=== PATIENT | female | born 1985 | race Caucasian/White ===

== ENCOUNTER 2017-12-03 11:41 | Inpatient (IN) | payer BC ==
[2017-12-03] MEDS ORDERED: Ondansetron HCl/PF 4 MG/2 ML Vial ONE ×2 (12:29→15:11)
[2017-12-03] MEDS ORDERED: ISOVUE-370 76%-LOCM 1 ML ONE (12:30)
[2017-12-03 12:31] LABS: #Eosinphils 0.4 thou/uL (0.0-0.7); #Monocytes 0.5 thou/uL (0.11-0.59); #Neutrophils 7.9 thou/uL (1.40-6.50); %Basophils 0.3 % (0.0-1.0); %Eosinophils 3.6 % (0.0-10.0); %Lymphocytes 10.1 % (21.0-51.0); %Monocytes 4.6 % (0.0-10.0); %Neutrophils 81.4 % (42.0-75.0); Mean Corpuscular HGB CONC 31.9 g/dL (32.0-36.0); Mean Corpuscular Hemoglobin 27.6 pg (27.0-31.0); Mean Corpuscular Volume 86.4 fl (81.0-99.0); Mean Platelet Volume 6.7 fL (7.4-10.4); Platelet Count 334 thou/uL (130-400); RBC Distribution Width 12.7 % (11.5-14.5); Red Blood Cell (RBC) Count 3.98 mill/uL (4.20-5.40); White Blood Cell (WBC) Count 9.8 thou/uL (4.8-10.8)
[2017-12-03] MEDS ORDERED: Iopamidol 370 76% 50 ML VIAL FS ONE (12:31)
[2017-12-03 12:35] LABS: ALT (SGPT) 8 U/L (8-55); AST (SGOT) 11 U/L (5-34); Alkaline Phosphatase 74 U/L (40-150); Anion Gap 13 mmol/L (10-20); BUN (Urea Nitrogen) 12 mg/dL (7.0-18.7); Calc. Creatinine Clearance 0 mL/min (70-130); Calcium 9.4 mg/dL (7.8-10.44); Carbon Dioxide 24 mmol/L (22-29); Chloride 106 mmol/L (98-107); Estimated GFR-MDRD Greater than 90; Globulin 3.4 g/dL (2.4-3.5); Glucose 85 mg/dL (70-105); Potassium 3.9 mmol/L (3.5-5.1); Protein, Total 7.4 g/dL (6.0-8.3); Sodium 139 mmol/L (136-145)
[2017-12-03 13:19] LABS: Bilirubin Small (Negative); Blood, Urine Negative (Negative); Clarity CLOUDY (Clear); Glucose, Urine (Dipstick) Negative (Negative); Leukocyte Negative (Negative); Nitrite Negative (Negative); Protein, Urine (Dipstick) 30 mg/dL (Neg-Trace); Specific Gravity, Urine 1.022 (1.002-1.036); pH, Urine 6.5 (5.0-9.0)
[2017-12-03 13:20] LABS: Pregnancy Test - Urine (BHCG) Negative (Negative); Pregu Control Background? CLEAR/WHITE (CLR/WHITE); Pregu Control Bar Appear? YES (CONTROL BAR); Specific Gravity 1.022 (1.002-1.036)
[2017-12-03 13:21] LABS: Bacteria/HPF 1+ HPF (None Seen); Hyaline Casts/LPF 7-10 HYALINE CAST LPF (0-3 Hyaline); Pathc Cast-AUWi Flag 0.67 (0-2.49); RBC/HPF 0-3 HPF (0-3)
[2017-12-03] MEDS ORDERED: Morphine 4 MG/ML Carpuject ONE (13:33)
[2017-12-03 13:42] LABS: Crystals/HPF None Seen HPF (Negative); Oval Fat Bodies/HPF None Seen HPF (None Seen); Renal Epithelial None Seen HPF (0-3); Transitional Epithelial NONE SEEN HPF (0-3); Trichomonas/HPF None Seen HPF (None Seen)
--- NOTE | 2017-12-03 14:28 | CT ---
CT OF ABDOMEN AND PELVIS: Date: 12/03/17 COMPARISON: None. HISTORY: Abdominal pain. TECHNIQUE: Serial axial CT imaging at 5 mm intervals from the lung bases through the pubic symphysis with IV con trast. Coronal reformatted imaging obtained. FINDINGS: The lack of oral contrast limits assessment of the bowel. Gastric suture line noted. Minimal ground-g lass opacity noted in right lower lobe, which may signify inflammatory change or atelectasis. Cholecy stectomy clips are present. No free intraperitoneal air is seen. There is a low density lesion in the right lobe of the liver on image 10 with Hounsfield units of ashley roximately 45-50. This is not consistent with a cyst. This lesion measures 2.8 cm. The spleen, pancreas, adrenal glands, and kidneys are unremarkable. There is abnormal density within the fat within the pelvis inseparable from the region of the cecal t ip, distal small bowel, right adnexa, sigmoid colon, and uterus. There is a calcification somewhat ce ntrally located with this extensive area of nonspecific inflammatory change within the pelvis on anny nal image 52 measuring 9.0 mm. This could be related to an appendicolith or trapped calcific material within a colonic diverticulum. There is ill-defined hypodensity in the region of the adnexa on the right, best seen on image 73, whi ch could represent cystic disease within the right ovary or a right ovarian/adnexal mass or abscess. Vascular structures appear patent. Multiple mildly prominent mesenteric nodes are seen in the right lower quadrant. No acute osseous abnormality is seen. IMPRESSION: 1. There is prominent inflammatory change centered in the lower right hemipelvis/right lower quadran t. Appendix cannot be discretely visualized. A calcification is seen centered within this inflammator y process, which may represent an appendicolith. Primary consideration would be for appendicitis with possible perforation. Alternative considerations include nonspecific ileitis, including Crohn's dise ase, or pelvic inflammatory disease. 2. Hypodense lesion within the liver, not consistent with a cyst. A hemangioma is favored. Follow-up MRI of abdomen with and without contrast and/or CT examination with and without contrast on a noneme rgent basis advised for further characterization. Surgical consultation and consideration for repeat CT examination with oral and rectal contrast media . Results called to Dr. Brewer at 1345 hours on 12/03/17. CODE CR. POS: ELENI
[2017-12-03] MEDS ORDERED: Promethazine HCl 25 MG/ML VIAL ONE (16:06)
[2017-12-03] MEDS ORDERED: Fentanyl 100 MCG/2 ML VIAL ONE (16:37)
--- NOTE | 2017-12-03 17:06 | CT ---
CT ABDOMEN AND PELVIS WITHOUT CONTRAST: History: Follow up after oral and rectal contrast. FINDINGS: The right lower quadrant cecum and terminal ileum are not enhanced with contrast. While this was thou ght to possibly be the dilated appendix on the prior examination, it ends up being terminal ileum. No appendix is seen on this examination. There is severe mucosal edema and thickening of the terminal i leum. There is also reactive edema and thickening of the sigmoid colon. There is a calcification in t he mesenteric soft tissues. There are numerous reactive ileocolic lymph nodes. IMPRESSION: The terminal ileum and cecum do not have contrast within their lumen. This most likely represent term inal ileitis and colitis. The abnormal calcification adjacent to the terminal ileum in extraluminal a nd abnormal. The appendix is not visualized. Ruptured appendix is still within the differential. POS: ELENI
[2017-12-03] MEDS ORDERED: Meropenem 1 GM in Sterile Water 20 ML SLOW IVP SCH (17:15)
[2017-12-03] MEDS ORDERED: Sodium Chloride 0.9% 1,000 ML IV SCH (18:49)
[2017-12-03] MEDS ORDERED: Ondansetron ODT 4 MG TAB SL PRN (18:49)
[2017-12-03] MEDS ORDERED: Ondansetron HCl/PF 4 MG/2 ML Vial IVP PRN (18:49)
[2017-12-03] MEDS ORDERED: Fentanyl 100 MCG/2 ML VIAL SLOW IVP PRN (18:49)
[2017-12-03] MEDS ORDERED: hydrALAZINE 20 MG/ML VIAL SLOW IVP PRN (19:32)
[2017-12-03] MEDS ORDERED: Nitroglycerin 0.4 MG TAB (25 Tab Bottle) SL PRN (19:32)
[2017-12-03] MEDS ORDERED: diphenhydrAMINE 25 MG CAP PO PRN (19:32)
[2017-12-03] MEDS ORDERED: Mag-Al 1200 mg/1200 mg/30 ML UDCUP PO PRN (19:32)
[2017-12-03] MEDS: Sodium Chloride 0.9% 1,000 ML IV SCH (20:30)
--- NOTE | 2017-12-03 20:44 | HP ---
DATE OF ADMISSION: 12/03/2017 PRIMARY CARE PHYSICIAN: Jonatan link. REASON FOR ADMISSION: Abdominal pain/colitis. HISTORY OF PRESENT ILLNESS: Ms. Scarlett Bailon is a 32-year-old female with no significant past med ical history, who presents with a reported history of colitis approximately 2 years ago, who presents to the emergency department with abdominal pain, which initially started a few weeks ago and has bee n intermittent since then. She states that, however, the pain has not been as severe as it was today . She states that in the past week, she has had intermittent pain which would dissipate without any kind of intervention. She denies any diarrhea; however, she states she has had nausea and vomiting. She complains of decreased appetite as well as decreased p.o. intake. She states the pain is locate d mainly in her right lower quadrant. The pain does not radiate. She denies any urinary symptoms. She states that 2 years ago, she had an episode of colitis, which was treated with antibiotics and a subsequent colonoscopy was performed which was reportedly negative. They presented back to the emerg ency room today after having a near syncopal episode from the pain. There was no seizure-like activi ty noted. She denies any numbness or tingling anywhere. A CT scan performed in the emergency room h ere has revealed the terminal ileum and cecum without any contrast in the lumen represented terminal ileitis and colitis. She is now being admitted to the medical floor for further evaluation, IV antib iotic therapy, as well as Gastroenterology evaluation. PAST MEDICAL HISTORY: History of colitis approximately 2 years ago. PAST SURGICAL HISTORY: , thyroidectomy, and a gastric sleeve surgery. CODE STATUS: FULL CODE. SOCIAL HISTORY: She denies any alcohol use, tobacco use or illicit drug use. CURRENT MEDICATIONS: Reviewed and none. ALLERGIES: Reviewed and none. FAMILY HISTORY: Reviewed and significant for grandfather with unspecified malignancy. REVIEW OF SYSTEMS: The following complete review of systems was negative, unless otherwise mentioned in the HPI or below: Constitutional: Weight loss or gain, sense of well-being, ability to conduct usual activities, exerc ise tolerance. Skin/Breast: Rash, itching, changes in hair growth or loss, nail changes, breast lumps, tenderness, swelling, nipple discharge. Eyes: Vision, double vision, tearing, blind spots, pain. ENT/Mouth: Headaches (location, time of onset, duration, precipitating factors), vertigo, lightheadedness, injury. Vision, double vision, tearing, blind spots, pain, nose b leeding, colds, obstruction, discharge, dental difficulties, gingival bleeding, dentures, neck stiffn ess, pain, tenderness, masses in thyroid or other areas Cardiovascular: Precordial pain, substernal distress, palpitations, syncope, dyspnea on exertion, or thopnea, nocturnal paroxysmal dyspnea, edema, cyanosis, hypertension, heart murmurs, varicosities, ph lebitis, claudication. Respiratory: Pain, shortness of breath, wheezing, stridor, cough, hemoptysis, fever or night sweats Gastrointestinal: Poor appetite, dysphagia, indigestion, abdominal pain, heartburn, eructation, naus ea, vomiting, hematemesis, jaundice, constipation, or diarrhea, abnormal stools (deni-colored, tarry, bloody, greasy, foul smelling), flatulence, hemorrhoids, recent changes in bowel habits. Genitourinary: Urgency, frequency, dysuria, nocturia, hematuria, polyuria, oliguria, unusual (or chikis nge in) color of urine, stones, hesitancy, change in size of stream, dribbling, acute retention or in continence, libido, potency. Musculoskeletal: Pain, swelling, redness or heat of muscles or joints, limitation, of motion, muscular weakness, atrophy, cramps. Neurologic/Psychiatric: Convulsions, paralyses, tremor, incoordination, parasthesias, difficulties w ith memory of speech, sensory or motor disturbances, or muscular coordination (ataxia, tremor), emoti onal problems, anxiety, depression, previous psychiatric care, unusual perceptions, hallucinations. Allergy/Immunologic: Skin rash, anemia, bleeding tendency, polydipsia, polyuria, intolerance to heat or cold. PHYSICAL EXAMINATION: VITAL SIGNS: Blood pressure most recently is 112/73, pulse 72, respirations are 16, O2 saturation is 100% on room air. GENERAL: She is in no acute distress, nontoxic appearing. EYES: Show pupils are round and reactive to light and accommodation. No pale conjunctivae. ENT/MOUTH: Dry oral mucosa. No oral lesions. RESPIRATORY: Equal chest wall expansion. No wheezes, rhonchi, or rales. CARDIOVASCULAR: S1, S2 present. No murmurs, gallops or rubs. GASTROINTESTINAL: Soft. She does have some tenderness in the right lower quadrant as well as in the periumbilical area. No rebound tenderness, no guarding, no peritoneal signs, no Rovsing's. LYMPHATIC: No swollen or painful cervical, axillary lymph nodes. NEUROLOGIC: No ptosis, no facial asymmetry, no tongue deviation or jaw protrusion, no focal deficits . PSYCHIATRIC: Awake, alert and oriented to time, place, and person. Answers questions appropriately. SKIN: Normal skin turgor. LABORATORY AND X-RAY FINDINGS: Taken in emergency room and reviewed by me show WBC of 9.8, hemoglobi n 11.0, hematocrit 34.4, platelet count 334,000. Chemistry shows sodium of 139, potassium 3.9, chlor mandi 106, carbon dioxide 24, anion gap 13, BUN 12, creatinine 0.70. AST and ALT 11 and 8, alkaline ph osphatase 74, lipase is 8. Urine shows 40 ketones, 30 protein and 11-20 wbc's and 7-[address] of the abdomen and pelvis performed with IV contrast revealed prominent inflammatory changes cente red in the lower right hemipelvis in the right lower quadrant. Primary consideration was given for a ppendicitis with possible perforation; however, alternative considerations were nonspecific ileitis o r pelvic inflammatory disease. A repeat CT was with oral and rectal contrast was recommended. Follow up CT with oral and rectal contrast, which revealed the terminal ileum and cecum did not have contrast within the lumen, most likely represent terminal ileitis and colitis. ASSESSMENT AND PLAN: Ms. Scarlett Bailon is a 32-year-old female with a reported history of colitis who presents to the emergency room complaining of abdominal pain. 1. Abdominal pain. At this time, the patient will be admitted to the medical floor. We will start the patient on IV fluids as well as IV antibiotics for suspected colitis. We will continue with cipr ofloxacin and Flagyl. We will consult Gastroenterology for further intervention. The General [facility] on-call has also been contacted in regards to the possibility of possible appendicitis on a [facility] n at this time. The recommendations per the general surgeon was to have a GI consult as this most li amrita represents more likely colitis rather than appendicitis and continue with IV antibiotics. 2. IV fluids. 3. Clear liquid diet, advance as tolerated. 4. P.r.n. order set. 5. Daily labs. 6. I have explained all this to the patient at bedside. She is agreeable to the plan of treatment. All questions have been answered. 7. FULL CODE. 8. The patient's further hospital course will be dictated by clinical course while here.
[2017-12-03] MEDS ORDERED: Morphine 4 MG/ML Carpuject SLOW IVP PRN (21:19)
[2017-12-03 22:28] VITALS: BMI 30.5
[2017-12-03] MEDS: metroNIDAZOLE 500 MG in Premix Bag 1 BAG IVPB SCH (22:51)
[2017-12-03] MEDS ORDERED: Ketorolac Tromethamine 30 MG/ML VIAL IVP SCH (23:30)
[2017-12-04] MEDS ORDERED: Meropenem 1 GM in Sterile Water 20 ML SLOW IVP SCH (02:00)
[2017-12-04] MEDS: Sodium Chloride 0.9% 1,000 ML IV SCH ×4 (04:09→21:30)
[2017-12-04 05:05] LABS: #Eosinphils 0.4 thou/uL (0.0-0.7); #Lymphocytes 1.9 thou/uL (1.20-3.40); #Monocytes 0.4 thou/uL (0.11-0.59); #Neutrophils 3.2 thou/uL (1.40-6.50); %Basophils 0.4 % (0.0-1.0); %Eosinophils 7.2 % (0.0-10.0); %Lymphocytes 31.2 % (21.0-51.0); %Monocytes 6.7 % (0.0-10.0); %Neutrophils 54.4 % (42.0-75.0); Hemoglobin 9.1 g/dL (12.0-16.0); Mean Corpuscular HGB CONC 31.1 g/dL (32.0-36.0); Mean Corpuscular Hemoglobin 26.9 pg (27.0-31.0); Mean Corpuscular Volume 86.3 fl (81.0-99.0); Mean Platelet Volume 6.6 fL (7.4-10.4); Platelet Count 248 thou/uL (130-400); RBC Distribution Width 12.6 % (11.5-14.5); Red Blood Cell (RBC) Count 3.39 mill/uL (4.20-5.40); White Blood Cell (WBC) Count 5.9 thou/uL (4.8-10.8)
[2017-12-04 05:13] LABS: Anion Gap 11 mmol/L (10-20); BUN (Urea Nitrogen) 6 mg/dL (7.0-18.7); Calc. Creatinine Clearance 174 mL/min (70-130); Calcium 8.5 mg/dL (7.8-10.44); Carbon Dioxide 24 mmol/L (22-29); Chloride 108 mmol/L (98-107); Estimated GFR-MDRD Greater than 90; Glucose 75 mg/dL (70-105); Potassium 3.7 mmol/L (3.5-5.1); Sodium 139 mmol/L (136-145)
[2017-12-04] MEDS: metroNIDAZOLE 500 MG in Premix Bag 1 BAG IVPB SCH ×3 (05:27→21:59)
[2017-12-04] MEDS: HYDROcodone/Acetaminophen 5/325 mg Tablet PO PRN ×2 (08:35→14:31)
[2017-12-04] MEDS: Ondansetron HCl/PF 4 MG/2 ML Vial IVP PRN ×2 (10:18→17:10)
--- NOTE | 2017-12-04 14:08 | CON ---
DATE OF CONSULTATION: 12/04/2017 REFERRING PHYSICIAN: Dr. Ej Valle REASON FOR CONSULTATION: Abdominal pain, abnormal CAT scan of the abdomen. HISTORY OF PRESENT ILLNESS: Ms. Scarlett Bailon is a very pleasant 32-year-old female hosp italized with abdominal pain and CAT scan showing thickening of the right colon. The patient usually lives in [place] and she came to visit her boyfriend in [place] a couple of days ago. The patient devel oped severe abdominal pain yesterday. The pain was over the right lower quadrant, suprapubic area, i t was very sharp. She also has some nausea. No history of fever or chills. There are no urinary sy mptoms. The patient came to the ER and had abdominal CAT scan. The CAT scan of abdomen shows some t hickening of the ileum and possibly the right colon. There is also mention of edema and thickening o f the sigmoid colon area. The patient is actually feeling better today. The abdominal pain intensit y is less than before. She had no nausea this morning, but after she took a dose of [place] she starte d having nausea and she got some medicine for nausea. She has had no diarrhea, hematochezia. The pa thanh has had similar episodes in the past. The first episode occurred 2 years ago and she had an ab dominal CAT scan and was told to have colitis. She was treated with antibiotics. Subsequently she w ent to a journeyman patternmaker in [place] and had a colonoscopy and was told to be normal colon. There is no evidence of any colitis or any evidence of Crohn's disease. The patient did well for a while a nd then again has been having some abdominal pain off and on. She has had abdominal pain in 05/2017 and went to the ER. Again had abdominal CAT scan and was told to have mild colitis. The patient got another dose of antibiotics. She had another episode in 09/2017 which was self-limiting. Her bowel movements are usually constipated. She has a BM every second or third day. There is no history of any diarrhea. The patient's last physical exam was a year ago by a coronary clinical specialist in [place]. She has had no other relevant history. ALLERGIES: None. SOCIAL HISTORY: The patient does not smoke or drink alcohol. MEDICAL ILLNESSES: Hypothyroidism, on replacement therapy. No other medical illness. SURGERIES: 1. Status post laparoscopic cholecystectomy for gallstones. 2. Status post gastric sleeve. 3. . FAMILY HISTORY: Grandfather had Crohn's disease and a grandmother had diabetes and heart disease. MENSTRUAL HISTORY: Menstrual history appears regular. LMP on , 11/13/2017, she usually bleeds for 5 days. REVIEW OF SYSTEMS: A 10-point system reviewed. CONSTITUTIONAL: No history of fever, no weight loss, no night sweats. DIRECTOR OF STAFF DEVELOPMENT: No history of syncope, no TIA, no chronic headache, no seizure disorder. RESPIRATORY: No history of chronic cough, hemoptysis, dyspnea. CARDIOVASCULAR: No chest pain, no palpitation, no orthopnea or PND. GASTROINTESTINAL: As in history of present illness. GENITOURINARY: No dysuria, hematuria or frequency of urination. GYNECOLOGICAL: Unremarkable. ENDOCRINE/HEMATOLOGICAL/PSYCHIATRIC: Not relevant. PHYSICAL EXAMINATION: GENERAL: The patient is a very pleasant young white female who appears comfortable. VITAL SIGNS: She is afebrile. Her pulse is 72, blood pressure 110/70. HEENT: Conjunctivae clear. NECK: Supple. No adenitis or thyromegaly noted. CARDIOVASCULAR: First and second heart sounds normal. LUNGS: Clear to auscultation. ABDOMEN: Soft. The abdomen is nondistended. Abdomen is mildly tender over the right lower quadrant , suprapubic area. There is no rebound or guarding. No organomegaly or masses. Bowel sounds are no rmal. EXTREMITIES: Reveal no edema. LABORATORY: WBC has no leukocytosis, WBC was 9800 yesterday, it dropped to 5799 today, hemoglobin 9. 1, hematocrit 29.2, MCV 86.3, platelet count 242,000, polymorphs 54, lymphocytes 30, monocytes 6. [facility] chemistries: Sodium 139, potassium 3.7, chloride 108, bicarb 24, BUN is 6, creatinine 0.64, gluc ose 76, calcium 8.5, bilirubin 1 mg percent, AST 11, ALT 8, alkaline phosphatase 74, lipase 8. [facility], one with contrast one without contrast. Both showed the same f indings. CLINICAL IMPRESSION: 1. A 32-year-old female with abdominal pain, history unclear. She has had similar episodes at least 2-3 occasions in the past. The first time she had this was 2 years ago and had a colonoscopy that w as totally normal. Also in 05/2017 had a CAT scan again showing some thickening of the right colon. Based on the history and physical, the symptoms suggestive of possibly irritable bowel disease, but she had a colonoscopy 2 years ago that was negative. 2. Hypothyroidism. 3. History of lactose intolerance. RECOMMENDATIONS: 1. N.p.o. 2. Continue IV antibiotics. 3. Analgesics. 4. Clear liquid diet and advance diet as tolerated. I did talk to Ms. Bailon about having a colonoscopy once she gets better. She will probably go back to see her journeyman patternmaker in [place] in the next few weeks to evaluate for a colonoscopy.
--- NOTE | 2017-12-04 14:15 | PDOC.PN ---
- Subjective Encounter Start Date: 12/04/17 Encounter Start Time: 10:20 Pt seen for followup re: abdominal pain. Reports pain is better. Nausea is better. No fevers. - Objective Resuscitation Status: Resuscitation Status FULL:Full Resuscitation MAR Reviewed: Yes Vital Signs & Weight: Vital Signs (12 hours) Temp Pulse Resp BP Pulse Ox 12/04/17 11:40 98.0 F 85 16 103/66 96 12/04/17 08:00 97.6 F 71 16 97 12/04/17 07:35 97.6 F 71 16 96/61 97 12/04/17 05:59 98.3 F 64 16 98/62 97 I&O: 12/03/17 12/04/17 12/05/17 06:59 06:59 06:59 Intake Total 600 Balance 600 Result Diagrams: 12/04/17 04:40 12/04/17 04:40 Phys Exam - Physical Examination Constitutional: NAD HEENT: moist MMs Neck: supple Respiratory: clear to auscultation bilateral Cardiovascular: RRR Gastrointestinal: soft Neurological: moves all 4 limbs Psychiatric: normal affect Skin: no rash Dx/Plan (1) Abdominal pain Code(s): R10.9 - UNSPECIFIED ABDOMINAL PAIN Status: Acute (2) Colitis Code(s): K52.9 - NONINFECTIVE GASTROENTERITIS AND COLITIS, UNSPECIFIED Status : Acute - Plan * . Await GI consult. Continue IV fluids, pain medications. Review of Systems - Review of Systems Cardiovascular: negative: chest pain, palpitations, orthopnea, paroxysmal nocturnal dyspnea, edema, light headedness Gastrointestinal: Nausea, Abdominal Pain. negative: Vomiting, Diarrhea, Constipation, Melena, Hematochezia - Medications/Allergies Allergies/Adverse Reactions: Allergies Allergy/AdvReac Type Severity Reaction Status Date / Time No Known Allergies Allergy Verified 12/03/17 21:18 Medications: Current Medications Hydrocodone Bitart/Acetaminophen ([place] 5/325) 1 tab PO Q4H PRN PRN Reason: Moderate Pain (4-6) Last Admin: 12/04/17 08:35 Dose: 1 tab Al Hydroxide/Mg Hydroxide (Maalox) 30 ml PO Q6H PRN PRN Reason: Heartburn or Indigestion Diphenhydramine HCl (Benadryl) 25 mg PO Q4H PRN PRN Reason: Itching Hydralazine HCl (Apresoline) 10 mg SLOW IVP Q4H PRN PRN Reason: Systolic BP > 180 Ciprofloxacin/Dextrose 400 mg/ (Device) 200 mls @ 200 mls/hr IVPB Q12HR [facility] Last Admin: 12/04/17 08:36 Dose: 200 mls Metronidazole 500 mg/ Device 100 mls @ 100 mls/hr IVPB Q8HR [facility] Last Admin: 12/04/17 05:27 Dose: 100 mls Sodium Chloride (Normal Saline 0.9%) 1,000 mls @ 125 mls/hr IV .Q8H [facility] Last Admin: 12/04/17 05:28 Dose: 1,000 mls Morphine Sulfate (Morphine) 2 mg SLOW IVP Q4H PRN PRN Reason: Severe Pain (7-10) Nitroglycerin (Nitrostat) 0.4 mg SL Q5MIN PRN PRN Reason: Chest Pain Ondansetron HCl (Zofran) 4 mg IVP Q6H PRN PRN Reason: Nausea/Vomiting Last Admin: 12/04/17 10:18 Dose: 4 mg Sodium Chloride (Flush - Normal Saline) 10 ml IVF Q12HR [facility] Last Admin: 12/04/17 08:05 Dose: Not Given Sodium Chloride (Flush - Normal Saline) 10 ml IVF PRN PRN PRN Reason: Saline Flush
[2017-12-04] MEDS ORDERED: Ondansetron HCl/PF 4 MG/2 ML Vial SLOW IVP SCH (22:00)
[2017-12-05] MEDS: Sodium Chloride 0.9% 1,000 ML IV SCH ×2 (04:13→14:55)
[2017-12-05] MEDS: metroNIDAZOLE 500 MG in Premix Bag 1 BAG IVPB SCH ×2 (05:42→14:55)
[2017-12-05] MEDS: Ondansetron HCl/PF 4 MG/2 ML Vial SLOW IVP PRN ×2 (06:33→14:56)
[2017-12-05] MEDS ORDERED: Polyethylene Glycol 3350 17 GM Packet PO PRN (11:47)
--- NOTE | 2017-12-05 12:41 | PRG ---
DATE OF SERVICE: 12/05/2017 SUBJECTIVE: This is a 32-year-old female with abdominal pain, nausea, and vomiting. The C AT scan shows some inflammatory changes over the right lower quadrant, specifically ileum and possibl y cecum. The patient is on a clear liquid diet. She has more abdominal pain. She continues to comp gina of nausea. She also has a metallic taste in the mouth. She is on IV antibiotics, predominantly Cipro. OBJECTIVE: GENERAL: Appears comfortable, in no distress. VITAL SIGNS: She is afebrile. Pulse is 74, blood pressure 114/71. CARDIOVASCULAR SYSTEM: First and second heart sounds normal. LUNGS: Clear to auscultation. ABDOMEN: Soft and nondistended. Abdomen is mildly tender over the right lower quadrant, but lot les s than before yesterday. PLAN: 1. Recommend advance diet to regular diet. 2. If she tolerates diet, may consider discharge home either late this afternoon or tomorrow morning . 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
--- NOTE | 2017-12-05 12:41 | PDOC.PN ---
- Subjective Encounter Start Date: 12/05/17 Encounter Start Time: 09:40 Pt seen for followup re: abdo pain. Continues to have pain, did not tolerate diet. - Objective Resuscitation Status: Resuscitation Status FULL:Full Resuscitation Vital Signs & Weight: Vital Signs (12 hours) Temp Pulse Resp BP Pulse Ox 12/05/17 08:00 98.7 F 74 16 114/71 98 I&O: 12/04/17 12/05/17 12/06/17 06:59 06:59 06:59 Intake Total 680 240 Balance 680 240 Result Diagrams: 12/04/17 04:40 12/04/17 04:40 Phys Exam - Physical Examination Constitutional: NAD HEENT: moist MMs Neck: supple Respiratory: clear to auscultation bilateral Cardiovascular: RRR Gastrointestinal: positive bowel sounds Mild RLQ tenderness Neurological: moves all 4 limbs Psychiatric: normal affect Dx/Plan (1) Abdominal pain Code(s): R10.9 - UNSPECIFIED ABDOMINAL PAIN Status: Acute (2) Colitis Code(s): K52.9 - NONINFECTIVE GASTROENTERITIS AND COLITIS, UNSPECIFIED Status : Acute - Plan * . PRN IV Zofran for nausea. See if pt can tolerate clear liquid diet. Will await GI reassessment. Review of Systems - Review of Systems Constitutional: negative: fever, chills, sweats, weakness, malaise Gastrointestinal: Nausea, Abdominal Pain. negative: Vomiting, Diarrhea, Constipation, Melena, Hematochezia - Medications/Allergies Allergies/Adverse Reactions: Allergies Allergy/AdvReac Type Severity Reaction Status Date / Time No Known Allergies Allergy Verified 12/03/17 21:18 Medications: Current Medications Hydrocodone Bitart/Acetaminophen ([place] 5/325) 1 tab PO Q4H PRN PRN Reason: Moderate Pain (4-6) Last Admin: 12/04/17 14:31 Dose: 1 tab Al Hydroxide/Mg Hydroxide (Maalox) 30 ml PO Q6H PRN PRN Reason: Heartburn or Indigestion Diphenhydramine HCl (Benadryl) 25 mg PO Q4H PRN PRN Reason: Itching Hydralazine HCl (Apresoline) 10 mg SLOW IVP Q4H PRN PRN Reason: Systolic BP > 180 Ciprofloxacin/Dextrose 400 mg/ (Device) 200 mls @ 200 mls/hr IVPB Q12HR [facility] Last Admin: 12/05/17 08:29 Dose: 200 mls Metronidazole 500 mg/ Device 100 mls @ 100 mls/hr IVPB Q8HR [facility] Last Admin: 12/05/17 05:42 Dose: 100 mls Sodium Chloride (Normal Saline 0.9%) 1,000 mls @ 125 mls/hr IV .Q8H [facility] Last Admin: 12/05/17 04:13 Dose: 1,000 mls Morphine Sulfate (Morphine) 2 mg SLOW IVP Q4H PRN PRN Reason: Severe Pain (7-10) Nitroglycerin (Nitrostat) 0.4 mg SL Q5MIN PRN PRN Reason: Chest Pain Ondansetron HCl (Zofran) 8 mg SLOW IVP Q6H PRN PRN Reason: Nausea/Vomiting Last Admin: 12/05/17 06:33 Dose: 8 mg Polyethylene Glycol (Miralax) 17 gm PO DAILYPRN PRN PRN Reason: Constipation Sodium Chloride (Flush - Normal Saline) 10 ml IVF Q12HR [facility] Last Admin: 12/05/17 08:27 Dose: Not Given Sodium Chloride (Flush - Normal Saline) 10 ml IVF PRN PRN PRN Reason: Saline Flush
[2017-12-05] MEDS ORDERED: Ciprofloxacin 500 MG TAB PO SCH (20:45)
[2017-12-05] MEDS: Ondansetron ODT 4 MG TAB PO PRN (21:26)
[2017-12-05] MEDS: metroNIDAZOLE 500 MG TAB PO SCH (21:26)
[2017-12-06] MEDS ORDERED: Ciprofloxacin 500 MG TAB PO SCH (06:00)
[2017-12-06] MEDS: Ondansetron ODT 4 MG TAB PO PRN (06:17)
[2017-12-06 08:39] VITALS: BP 109/71; TEMP 98.5
[2017-12-06] MEDS: metroNIDAZOLE 500 MG TAB PO SCH (09:10)
[2017-12-06] MEDS ORDERED: Cephalexin 250 MG CAP PO SCH (12:00)
--- NOTE | 2017-12-06 17:32 | DIS ---
DATE OF ADMISSION: 12/03/2017 DATE OF DISCHARGE: 12/06/2017 PRIMARY CARE PHYSICIAN: Dr. Soni Villanueva. DISCHARGE DIAGNOSES: 1. Colitis. 2. Positive vaginitis screen for Gardnerella. CONSULTATION DURING THIS HOSPITALIZATION: Gastroenterology, Dr. Wesley. CONDITION OF PATIENT ON THE DAY OF DISCHARGE: Stable. I assessed Ms. Bailon on the day of discharg e. She denies any chest pain or shortness of breath. She reports that nausea is better with Zofran. She is tolerating diet. Vital signs are stable. S1 and S2 are heard, regular. Lungs are clear to auscultation bilaterally. Abdomen is soft, nontender, bowel sounds are heard. DISCHARGE MEDICATIONS: Cephalexin 500 mg every 6 hours for 4 more days, metronidazole 500 mg 3 times a day for 4 more days, Zofran 4 mg every 6 hours as needed. HOSPITAL COURSE: Ms. Bailon is a pleasant 32-year-old lady who was admitted to [facility] on 12/03/2017 for colitis. She was seen by Gastroenterology Service. CT scan of the a bdomen and pelvis done on 12/03/2017 showed possible terminal ileitis and colitis. She also had calc ification in the mesenteric soft tissues as well as numerous reactive ileocolonic lymph nodes. Gastroenterology service recommended colonoscopy once she gets better and follow up with patient's mt stroenterologist in [place] in the next few weeks to be evaluated for colonoscopy. She improved symptomatically with antiemetics. She is being discharged home to complete one week cou rse of antibiotics. 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 I will leave it to the primary care physi carmen's judgment if she needs further workup of the mesenteric calcification. On 12/04/2017, she had a white count of 5900, hemoglobin 9.1 and platelet count 248,000. Sodium 139, potassium 3.7, creatinine 0.61. Many thanks for allowing me to participate in your patient's care. Please feel free to contact me wi th any questions or concerns. DISCHARGE DESTINATION: Home. TOTAL AMOUNT OF TIME SPENT COORDINATING THIS DISCHARGE: 32 minutes.
[2017-12-06 22:33] LABS: Chlamydia by PCR Not Detected (NotDetected); GC by PCR Not Detected (NotDetected)
== END 2017-12-06 15:03 | disposition home or self-care (01) | DRG 392 ==
LOC: ERS 11:41 → T4-B 18:44
PROVIDERS: ADMIT Hospitalist; ATTEND Hospitalist
DX: K52.9 Noninfective gastroenteritis and colitis, unspecified (principal); B96.89 Other specified bacterial agents as the cause of diseases classified elsewhere; Z98.84 Bariatric surgery status; N76.0 Acute vaginitis; E03.9 Hypothyroidism, unspecified
CPT/HCPCS: 36415; 74176; 74177; 80048; 80053; 81003; 81015; 81025; 83690; 85025; 87480; 87491; 87510; 87591; 87660; 96361; 96365; 96375; 96376; A4216; J0744; J1885; J2185; J2270; J2405; J2550; J3010; Q0162